=== PATIENT | female | born 2000 | race Two or more races ===

== ENCOUNTER 2024-04-07 14:00 | Inpatient (IN) | payer MEDICAID, OTHER ==
[~2024-04-07] VITALS: Ht 154.9 cm; Wt 88.5 kg
[2024-04-07 14:54] LABS: Basophils # (auto) 0 10 ^3/uL (0-0.2); Basophils % (auto) 0.4 % (0.0-2.0); Eosinophils # (auto) 0 10 ^3/uL (0-0.8); Eosinophils % (auto) 0.8 % (0.0-7.0); Hematocrit 35.8 % (36.0-46.0); Hemoglobin 12.1 g/dL (12.2-16.2); Lymphocytes # (auto) 1.4 10 ^3/uL (0.4-5.4); Lymphocytes % (auto) 22.9 % (10.0-50.0); Mean Corpuscular Hemoglobin 29.8 pg (28.0-32.0); Mean Corpuscular Hgb Conc. 33.8 g/dL (32.0-36.0); Mean Corpuscular Volume 88.2 fL (80.0-100.0); Monocytes # (auto) 0.4 10 ^3/uL (0-1.3); Neutrophils # (auto) 4.2 10 ^3/uL (1.6-8.6); Neutrophils % (auto) 69.9 % (37.0-80.0); Red Blood Cells 4.06 10^6/uL (4.0-5.20); Red Cell Distribution Width 14.4 % (11.8-14.3)
[2024-04-07 15:18] LABS: Alanine Aminotransferase 35 U/L (7-40); Alkaline Phosphatase 128 U/L (46-116); Anion Gap 7 (5-15); Aspartate Aminotransferase 40 U/L (13-40); BUN/Creatinine Ratio 12.7 (10.0-20.0); Bilirubin, Total 0.7 mg/dL (0.2-1.0); Blood Urea Nitrogen 8 mg/dL (9-23); Calcium 9.2 mg/dL (8.7-10.4); Carbon Dioxide 27 mmol/L (20-30); Chloride 105 mmol/L (98-107); Glucose 98 mg/dL (74-106); Lipase 67 U/L (12-53); Sodium 139 mmol/L (136-145); Total Protein 8.1 g/dL (5.7-8.2)
[2024-04-07] MEDS: ONDANSETRON HCL 4 MG/2 ML VIAL IV ONE (16:25)
[2024-04-07] MEDS: PANTOPRAZOLE 40 MG/10 ML VIAL INJ IV ONE (16:25)
[2024-04-07] MEDS: MORPHINE SULFATE 4 MG/ML SYR/VIAL IV ONE (16:26)
[2024-04-07] MEDS: SODIUM CHLORIDE 0.9% 1,000 ML IVB ONE (16:27)
[2024-04-07 16:32] VITALS: PULSE 83; RESP 18; O2SAT 94
[2024-04-07 17:22] LABS: Urine Bacteria None Seen /hpf (None Seen)
[2024-04-07 18:04] LABS: Urine Blood Negative /uL (Negative); Urine Clarity Clear (Clear); Urine Color Yellow (Yellow); Urine Mucus FEW (None Seen); Urine Protein, UAD TRACE (Negative); Urine Urobilinogen Normal (Negative); Urine WBC 2 /hpf (0 - 5)
[2024-04-07] MEDS: SODIUM CHLORIDE 0.9% 1,000 ML IV SCH (20:10)
[2024-04-07] MEDS: ONDANSETRON HCL 4 MG/2 ML VIAL IV PRN (20:12)
[2024-04-07 20:20] VITALS: PULSE 66; RESP 16; O2SAT 100
[2024-04-07] MEDS: MORPHINE SULFATE INJ 2 MG/ml SYRG IV PRN (22:05)
[2024-04-08 04:06] LABS: Basophils # (auto) 0 10 ^3/uL (0-0.2); Basophils % (auto) 0.3 % (0.0-2.0); Eosinophils # (auto) 0.1 10 ^3/uL (0-0.8); Eosinophils % (auto) 1.5 % (0.0-7.0); Hematocrit 35.9 % (36.0-46.0); Lymphocytes # (auto) 1.6 10 ^3/uL (0.4-5.4); Lymphocytes % (auto) 30.3 % (10.0-50.0); Mean Corpuscular Hemoglobin 30.3 pg (28.0-32.0); Mean Corpuscular Hgb Conc. 33.4 g/dL (32.0-36.0); Mean Corpuscular Volume 90.7 fL (80.0-100.0); Monocytes # (auto) 0.3 10 ^3/uL (0-1.3); Monocytes % (auto) 6.3 % (0.0-12.0); Neutrophils # (auto) 3.2 10 ^3/uL (1.6-8.6); Neutrophils % (auto) 61.6 % (37.0-80.0); Red Blood Cells 3.95 10^6/uL (4.0-5.20); Red Cell Distribution Width 14.6 % (11.8-14.3); White Blood Cell 5.2 10^3/uL (4.4-10.8)
[2024-04-08 04:23] LABS: Alanine Aminotransferase 62 U/L (7-40); Alkaline Phosphatase 151 U/L (46-116); Anion Gap 8 (5-15); Aspartate Aminotransferase 52 U/L (13-40); BUN/Creatinine Ratio 12.1 (10.0-20.0); Bilirubin, Total 0.9 mg/dL (0.2-1.0); Blood Urea Nitrogen 7 mg/dL (9-23); Calcium 9.5 mg/dL (8.7-10.4); Carbon Dioxide 23 mmol/L (20-30); Chloride 107 mmol/L (98-107); Glucose 75 mg/dL (74-106); Potassium 3.7 mmol/L (3.5-5.1); Sodium 138 mmol/L (136-145); Total Protein 7.9 g/dL (5.7-8.2)
[2024-04-08 07:15] VITALS: PULSE 75; RESP 14; O2SAT 94
[2024-04-08] MEDS: PANTOPRAZOLE 40 MG/10 ML VIAL INJ IV SCH (10:06)
[2024-04-08] MEDS: HYDROcodone-ACET 5/325MG TAB PO PRN (12:52)
[2024-04-08 15:42] VITALS: BP 123/74; PULSE 80; RESP 18; TEMP 98; O2SAT 94
[2024-04-08 17:00] VITALS: BP 123/74; PULSE 82; RESP 18; TEMP 98; O2SAT 95
[2024-04-08 20:00] VITALS: PULSE 84; RESP 18; O2SAT 95
[2024-04-08 21:00] VITALS: BP 108/65; PULSE 84; RESP 18; TEMP 98.3; O2SAT 95
[2024-04-08] MEDS: ENOXAPARIN SOD 80 MG/0.8ML SYRINGE SC SCH (22:39)
[2024-04-09] VITALS (9 sets, daily range): BP systolic 97–123; BP diastolic 54–72; PULSE 78–98; RESP 16–18; TEMP 97.8–98.4; O2SAT 94–98
[2024-04-09 07:02] LABS: Basophils # (auto) 0 10 ^3/uL (0-0.2); Basophils % (auto) 0.4 % (0.0-2.0); Eosinophils # (auto) 0.1 10 ^3/uL (0-0.8); Eosinophils % (auto) 1.7 % (0.0-7.0); Hematocrit 29.9 % (36.0-46.0); Hemoglobin 10.6 g/dL (12.2-16.2); Lymphocytes # (auto) 1.6 10 ^3/uL (0.4-5.4); Lymphocytes % (auto) 39.3 % (10.0-50.0); Mean Corpuscular Hemoglobin 31.4 pg (28.0-32.0); Mean Corpuscular Hgb Conc. 35.2 g/dL (32.0-36.0); Mean Corpuscular Volume 88.9 fL (80.0-100.0); Monocytes # (auto) 0.3 10 ^3/uL (0-1.3); Monocytes % (auto) 6.8 % (0.0-12.0); Neutrophils # (auto) 2.1 10 ^3/uL (1.6-8.6); Neutrophils % (auto) 51.8 % (37.0-80.0); Nucleated Red Blood Cells % 0.1 %; Red Blood Cells 3.37 10^6/uL (4.0-5.20); Red Cell Distribution Width 13.9 % (11.8-14.3); White Blood Cell 4.1 10^3/uL (4.4-10.8)
[2024-04-09 07:41] LABS: Alanine Aminotransferase 38 U/L (7-40); Albumin 3.4 g/dL (3.2-4.8); Alkaline Phosphatase 120 U/L (46-116); Anion Gap 9 (5-15); Blood Urea Nitrogen 7 mg/dL (9-23); Carbon Dioxide 25 mmol/L (20-30); Chloride 105 mmol/L (98-107); Glucose 60 mg/dL (74-106); Potassium 4.1 mmol/L (3.5-5.1); Sodium 139 mmol/L (136-145)
[2024-04-09 07:42] LABS: Aspartate Aminotransferase 24 U/L (13-40); Bilirubin, Total 0.9 mg/dL (0.2-1.0); Total Protein 6.9 g/dL (5.7-8.2)
[2024-04-09] MEDS ORDERED: TPN PER PHARMACY 0 ML IV SCH (13:30)
[2024-04-09] MEDS ORDERED: DEXTROSE (50%) 50ML SYRG IV SCH (14:00)
[2024-04-09] MEDS: PIPERACILLIN-TAZOB 3.375GM 100 ML IV SCH (15:50)
[2024-04-09] MEDS: ACCU-CHEK COMFORT CURVE STRIP VI SCH (18:00)
[2024-04-09] MEDS: InsuLIN REG 1unit/0.01ml Soln (100units/ml) SC SCH (18:00)
[2024-04-09] MEDS: AMINO ACID INFUSION IN D10W 1,000 ML IV ONE (20:25)
[2024-04-10] VITALS (7 sets, daily range): BP systolic 100–108; BP diastolic 46–70; PULSE 96–124; RESP 17–20; TEMP 97.9–99.6; O2SAT 91–99
[2024-04-10] MEDS: ACETAMINOPHEN 325 MG TAB PO PRN (00:01)
[2024-04-10 07:04] LABS: Basophils # (auto) 0 10 ^3/uL (0-0.2); Basophils % (auto) 0.1 % (0.0-2.0); Eosinophils # (auto) 0 10 ^3/uL (0-0.8); Eosinophils % (auto) 0.6 % (0.0-7.0); Hematocrit 35.6 % (36.0-46.0); Hemoglobin 12.4 g/dL (12.2-16.2); Lymphocytes # (auto) 0.3 10 ^3/uL (0.4-5.4); Lymphocytes % (auto) 8.6 % (10.0-50.0); Mean Corpuscular Hemoglobin 30.5 pg (28.0-32.0); Mean Corpuscular Hgb Conc. 34.9 g/dL (32.0-36.0); Mean Corpuscular Volume 87.4 fL (80.0-100.0); Monocytes # (auto) 0.1 10 ^3/uL (0-1.3); Monocytes % (auto) 3.3 % (0.0-12.0); Neutrophils # (auto) 3.5 10 ^3/uL (1.6-8.6); Neutrophils % (auto) 87.4 % (37.0-80.0); Red Blood Cells 4.07 10^6/uL (4.0-5.20); Red Cell Distribution Width 14.2 % (11.8-14.3)
[2024-04-10] MEDS ORDERED: GADOTERATE MEG 10 MMOL/20ml INJ (0.5MMOL/ml) IV ONE (07:28)
[2024-04-10 07:30] LABS: Alanine Aminotransferase 34 U/L (7-40); Alkaline Phosphatase 120 U/L (46-116); Anion Gap 9 (5-15); Calcium 9.1 mg/dL (8.7-10.4); Carbon Dioxide 25 mmol/L (20-30); Chloride 101 mmol/L (98-107); Glucose 101 mg/dL (74-106); Potassium 3.5 mmol/L (3.5-5.1); Sodium 135 mmol/L (136-145); Triglycerides 75 mg/dL (< 150)
[2024-04-10 07:31] LABS: Aspartate Aminotransferase 21 U/L (13-40); Magnesium 1.6 mg/dL (1.6-2.6)
[2024-04-10 07:32] LABS: Albumin 3.9 g/dL (3.2-4.8)
[2024-04-10 07:33] LABS: Bilirubin, Total 1.1 mg/dL (0.2-1.0); Phosphorus 4.3 mg/dL (2.4-5.1); Total Protein 7.8 g/dL (5.7-8.2)
[2024-04-10 07:39] LABS: BUN/Creatinine Ratio 8.2 (10.0-20.0); Blood Urea Nitrogen < 5 mg/dL (9-23)
[2024-04-10] MEDS: POTASSIUM CHL 20MEQ/100ML 100 ML IV ONE (15:12)
[2024-04-10] MEDS: MAGNESIUM SULFATE 1GM/100ML 100 ML IV ONE (15:12)
[2024-04-10] MEDS: PIPERACILLIN-TAZOB 3.375GM 100 ML IV SCH (21:34)
[2024-04-10] MEDS: TPN PER PHARMACY IV NR (21:46)
[2024-04-11] VITALS (8 sets, daily range): BP systolic 99–122; BP diastolic 57–83; PULSE 80–95; RESP 16–18; TEMP 97.6–98.1; O2SAT 94–99
[2024-04-11 06:45] LABS: Basophils # (auto) 0 10 ^3/uL (0-0.2); Basophils % (auto) 0.2 % (0.0-2.0); Eosinophils # (auto) 0.2 10 ^3/uL (0-0.8); Eosinophils % (auto) 4.8 % (0.0-7.0); Hematocrit 29.7 % (36.0-46.0); Hemoglobin 10.3 g/dL (12.2-16.2); Lymphocytes # (auto) 0.4 10 ^3/uL (0.4-5.4); Lymphocytes % (auto) 12.8 % (10.0-50.0); Mean Corpuscular Hemoglobin 30.4 pg (28.0-32.0); Mean Corpuscular Hgb Conc. 34.6 g/dL (32.0-36.0); Mean Corpuscular Volume 87.9 fL (80.0-100.0); Monocytes # (auto) 0.5 10 ^3/uL (0-1.3); Neutrophils # (auto) 2.3 10 ^3/uL (1.6-8.6); Neutrophils % (auto) 68.2 % (37.0-80.0); Nucleated Red Blood Cells % 0.1 %; Red Blood Cells 3.38 10^6/uL (4.0-5.20); Red Cell Distribution Width 13.9 % (11.8-14.3); White Blood Cell 3.3 10^3/uL (4.4-10.8)
[2024-04-11 06:50] LABS: Alanine Aminotransferase 29 U/L (7-40); Albumin 3.3 g/dL (3.2-4.8); Alkaline Phosphatase 80 U/L (46-116); Amylase 80 U/L (30-118); Anion Gap 8 (5-15); Aspartate Aminotransferase 23 U/L (13-40); Calcium 8.4 mg/dL (8.7-10.4); Carbon Dioxide 27 mmol/L (20-30); Chloride 105 mmol/L (98-107); Glucose 124 mg/dL (74-106); Magnesium 1.9 mg/dL (1.6-2.6); Potassium 3.5 mmol/L (3.5-5.1); Sodium 140 mmol/L (136-145)
[2024-04-11 06:51] LABS: Bilirubin, Total 0.7 mg/dL (0.2-1.0); Phosphorus 2.8 mg/dL (2.4-5.1); Total Protein 6.6 g/dL (5.7-8.2)
[2024-04-11 06:54] LABS: BUN/Creatinine Ratio 8.5 (10.0-20.0); Blood Urea Nitrogen < 5 mg/dL (9-23)
[2024-04-12] VITALS (7 sets, daily range): BP systolic 99–124; BP diastolic 60–77; PULSE 65–84; RESP 16–20; TEMP 98–99.9; O2SAT 95–100
[2024-04-12 07:14] LABS: Basophils # (auto) 0 10 ^3/uL (0-0.2); Basophils % (auto) 0.5 % (0.0-2.0); Eosinophils # (auto) 0.2 10 ^3/uL (0-0.8); Eosinophils % (auto) 5.7 % (0.0-7.0); Hematocrit 28.8 % (36.0-46.0); Hemoglobin 9.8 g/dL (12.2-16.2); Lymphocytes # (auto) 0.5 10 ^3/uL (0.4-5.4); Lymphocytes % (auto) 16.9 % (10.0-50.0); Mean Corpuscular Hemoglobin 29.8 pg (28.0-32.0); Mean Corpuscular Hgb Conc. 33.9 g/dL (32.0-36.0); Mean Corpuscular Volume 87.8 fL (80.0-100.0); Monocytes # (auto) 0.3 10 ^3/uL (0-1.3); Neutrophils # (auto) 1.9 10 ^3/uL (1.6-8.6); Neutrophils % (auto) 64.9 % (37.0-80.0); Nucleated Red Blood Cells % 0.2 %; Red Blood Cells 3.28 10^6/uL (4.0-5.20); Red Cell Distribution Width 14.1 % (11.8-14.3); White Blood Cell 2.9 10^3/uL (4.4-10.8)
[2024-04-12 07:24] LABS: Anion Gap 8 (5-15); Carbon Dioxide 23 mmol/L (20-30); Chloride 111 mmol/L (98-107); Potassium 3.6 mmol/L (3.5-5.1); Sodium 142 mmol/L (136-145)
[2024-04-12 07:26] LABS: Calcium 8.1 mg/dL (8.7-10.4)
[2024-04-12 07:30] LABS: Blood Urea Nitrogen 5 mg/dL (9-23); Glucose 88 mg/dL (74-106)
[2024-04-13 01:00] VITALS: BP 121/79; PULSE 78; RESP 20; TEMP 98.3; O2SAT 97
[2024-04-13 05:00] VITALS: BP 109/61; PULSE 78; RESP 18; TEMP 97.9; O2SAT 97
[2024-04-13 07:07] LABS: Chloride 110 mmol/L (98-107); Potassium 3.8 mmol/L (3.5-5.1); Sodium 142 mmol/L (136-145)
[2024-04-13 07:09] LABS: Calcium 8.7 mg/dL (8.7-10.4)
[2024-04-13 07:13] LABS: Glucose 85 mg/dL (74-106)
[2024-04-13 07:16] LABS: Basophils # (auto) 0 10 ^3/uL (0-0.2); Basophils % (auto) 0.5 % (0.0-2.0); Eosinophils # (auto) 0.1 10 ^3/uL (0-0.8); Eosinophils % (auto) 5.6 % (0.0-7.0); Hematocrit 30.1 % (36.0-46.0); Hemoglobin 10.2 g/dL (12.2-16.2); Lymphocytes # (auto) 0.9 10 ^3/uL (0.4-5.4); Lymphocytes % (auto) 41.8 % (10.0-50.0); Mean Corpuscular Hemoglobin 29.9 pg (28.0-32.0); Mean Corpuscular Volume 88.1 fL (80.0-100.0); Monocytes # (auto) 0.2 10 ^3/uL (0-1.3); Monocytes % (auto) 9.3 % (0.0-12.0); Neutrophils # (auto) 0.9 10 ^3/uL (1.6-8.6); Neutrophils % (auto) 42.8 % (37.0-80.0); Nucleated Red Blood Cells % 0.5 %; Red Blood Cells 3.42 10^6/uL (4.0-5.20); White Blood Cell 2.1 10^3/uL (4.4-10.8)
[2024-04-13 07:18] LABS: BUN/Creatinine Ratio 10.9 (10.0-20.0); Blood Urea Nitrogen < 5 mg/dL (9-23)
[2024-04-13 07:22] LABS: Anion Gap 8 (5-15); Carbon Dioxide 24 mmol/L (20-30)
[2024-04-13 08:00] VITALS: O2SAT 98
[2024-04-13 09:26] VITALS: BP 103/61; PULSE 72; RESP 16; TEMP 98.6; O2SAT 99
[2024-04-13 13:59] VITALS: TEMP 37
[2024-04-13 14:11] VITALS: BP 100/66; PULSE 64; RESP 16; TEMP 98.4; O2SAT 96
== END 2024-04-13 15:10 | disposition home or self-care (01) | DRG 282 ==
LOC: ER 14:06 → OVERFLOW 16:30 → EAST 04-08 15:33
PROVIDERS: ADMIT Internal Medicine; ATTEND Internal Medicine
DX: K85.11 Biliary acute pancreatitis with uninfected necrosis (principal); D69.6 Thrombocytopenia, unspecified; E66.9 Obesity, unspecified; K80.20 Calculus of gallbladder without cholecystitis without obstruction; K86.3 Pseudocyst of pancreas; K29.70 Gastritis, unspecified, without bleeding; Z83.3 Family history of diabetes mellitus; Z68.35 Body mass index [BMI] 35.0-35.9, adult
CPT/HCPCS: 36415; 71045; 74178; 74183; 76705; 78226; 80048; 80053; 81001; 81025; 82150; 82962; 83690; 83735; 84100; 84478; 85025; G0378; J1815; J2405; J2470; J2543; J3480; J7131